=== PATIENT | male | born 1930 | race Caucasian/White ===

== ENCOUNTER 2020-03-10 11:08 | Emergency (ER) | payer OTHER ==
--- NOTE | 2020-03-10 12:09 | RAD REPORT ---
EXAM DESCRIPTION: CT - Thorax Wo Con CLINICAL HISTORY: Chest pain Pain;Smash injury COMPARISON: No comparisons FINDINGS: Emphysematous changes are present throughout the lungs with linear subsegmental atelectasi s both medial lung bases. Trace pleural fluid is present bilaterally. No pneumothorax. No axillary, mediastinal or hilar adenopathy. No displaced fractures are seen. There are several low-density lesions likely representing cysts. Rig ht renal cyst also present. All CT scans are performed using dose optimization technique as appropriate and may include automated exposure control or mA/KV adjustment according to patient size. IMPRESSION: No displaced rib fracture is seen. Atelectasis or mild infiltrate both lung bases with trace pleural effusions.
[2020-03-10] MEDS ORDERED: HYDROCODONE/APAP 5/325 MG TAB ONE (12:54)
--- NOTE | 2020-03-10 13:01 | ER ---
Nurse's Notes [facility] Name: Byron Snyder Age: 89 yrs Sex: Male : 1930 Arrival Date: 03/10/2020 Time: 11:10 Bed 24 Private MD: Tripp Hebert Diagnosis: Fall on same level, unspecified;Contusion to right lateral thorax Presentation: 03/10 11:20 Chief complaint: Patient states: Tripped Monday. Hit right lateral chest. States he has ll1 pain to a certain area with touch. No SOB or fever. Coronavirus screen: Client denies travel out of the [place] in the last 14 days. At this time, the client does not indicate any symptoms associated with coronavirus-19. Ebola Screen: Patient denies travel to an Ebola-affected area in the 21 days before illness onset. Initial Sepsis Screen: Does the patient meet any 2 criteria? No. Patient's initial sepsis screen is negative. Does the patient have a suspected source of infection? Yes: Bone or joint infection. Risk Assessment: Do you want to hurt yourself or someone else? Patient reports no desire to harm self or others. Onset of symptoms was March 08, 2020. 11:20 Method Of Arrival: Ambulatory ll1 11:20 Acuity: SULY 3 ll1 Historical: - Allergies: 11:23 Wasps; ll1 - PMHx: 11:23 Hyperlipidemia; ll1 - PSHx: 11:23 2 cardiac stents; Appendectomy; Tonsillectomy; ll1 - Immunization history:: Flu vaccine is up to date. - Social history:: Smoking status: Patient denies any tobacco usage or history of. Screenin:31 Abuse screen: Denies threats or abuse. Nutritional screening: No deficits noted. jd3 Tuberculosis screening: No symptoms or risk factors identified. Fall Risk Ambulatory Aid- Crutches/Cane/Walker (15 pts). Gait- Weak (10 pts.). Mental Status- Oriented to own ability (0 pts). Total Caal Fall Scale indicates Low Risk Score (25-44 pts). Fall prevention measures have been instituted. Side Rails Up X 2 Placed close to Nursing Station Frequent Obs/Assesments occuring Family Present and informed to notify staff if they need to leave bedside. Assessment: 12:30 General: Appears in no apparent distress. uncomfortable, Behavior is calm, cooperative, jd3 appropriate for age. Pain: Complains of pain in right lateral anterior chest Quality of pain is described as stabbing, tender. Neuro: Level of Consciousness is awake, alert, obeys commands, Oriented to person, place, time, situation. Cardiovascular: Heart tones present Capillary refill < 3 seconds Patient's skin is warm and dry. Respiratory: Airway is patent Respiratory effort is even, unlabored, Respiratory pattern is regular, symmetrical, Breath sounds are clear bilaterally. Denies cough, shortness of breath. GI: No signs and/or symptoms were reported involving the gastrointestinal system. : No signs and/or symptoms were reported regarding the genitourinary system. EENT: No signs and/or symptoms were reported regarding the EENT system. Derm: Skin is intact, Skin is dry, Skin is normal, Skin temperature is warm. Musculoskeletal: Circulation, motion, and sensation intact. Range of motion: intact in all extremities. 13:12 Reassessment: Patient appears in no apparent distress at this time. No changes from jd3 previously documented assessment. Patient and/or family updated on plan of care and expected duration. Pain level reassessed. Patient is alert, oriented x 3, equal unlabored respirations, skin warm/dry/pink. awaiting incitive spirometer teaching from respiratory therapy before discharge. 13:32 Reassessment: Patient appears in no apparent distress at this time. Patient and/or jd3 family updated on plan of care and expected duration. Pain level reassessed. Patient is alert, oriented x 3, equal unlabored respirations, skin warm/dry/pink. incitive spirometer taught by nurse and pt discharged. Vital Signs: 11:20 BP 125 / 58; Pulse 44; Resp 17; Temp 97.4; Pulse Ox 100% ; Weight 70.31 kg; Height 5 ll1 ft. 10 in. (177.80 cm); Pain 8/10; 13:33 BP 126 / 62; Pulse 50; Resp 16 S; Pulse Ox 100% on R/A; jd3 11:20 Body Mass Index 22.24 (70.31 kg, 177.80 cm) ll1 ED Course: 11:10 Patient arrived in ED. mr 11:10 Tripp Hebert MD is Private Physician. mr 11:22 Triage completed. ll1 11:29 Patient has correct armband on for positive identification. ll1 11:34 [facility] 12:00 CT Chest Wo Con In Process Unspecified. EDMS 12:11 Raghav Baez RN is Primary Nurse. jd3 12:31 Arm band placed on. jd3 13:00 Tripp Hebert MD is Referral Physician. snw 13:02 Bo Max MD is Attending Physician. snw 13:33 No provider procedures requiring assistance completed. Patient did not have IV access jd3 during this emergency room visit. Administered Medications: 12:43 Drug: [place] 5 mg-325 mg 1 tabs Route: PO; jd3 13:05 Follow up: Response: No adverse reaction; RASS: Alert and Calm (0) jd3 Outcome: 13:01 Discharge ordered by . snw 13:33 Discharged to home ambulatory, with family. jd3 13:33 Condition: stable 13:33 Discharge instructions given to patient, family, Instructed on discharge instructions, follow up and referral plans. medication usage, Demonstrated understanding of instructions, follow-up care, medications, Prescriptions given X 1. 13:34 Patient left the ED. jd3 Signatures: Dispatcher [employer] EDCT Amie Reese FNP-C DIGITAL ARCHIVIST-Csn Christi Lam mr Raghav Baez RN RN Contreras Alaniz RN RN ll1 Corrections: (The following items were deleted from the chart) 11:29 11:23 Arm band placed on Patient placed in an exam room, on a stretcher, ll1 ll1 13:14 13:12 Reassessment: Patient appears in no apparent distress at this time. No changes jd3 from previously documented assessment. Patient and/or family updated on plan of care and expected duration. Pain level reassessed. Patient is alert, oriented x 3, equal unlabored respirations, skin warm/dry/pink. awaiting incitive spirometer teaching from respiratory therapy before discharge jd3
--- NOTE | 2020-03-10 13:02 | EDPHYS ---
Physician Documentation [facility] Name: Byron Snyder Age: 89 yrs Sex: Male : 1930 Arrival Date: 03/10/2020 Time: 11:10 Bed 24 Private MD: Tripp Hebert ED Physician Bo Max HPI: 03/10 13:02 This 89 yrs old Male presents to ER via Ambulatory with complaints of Fall snw Injury, Rib pain. 13:02 Details of fall: The patient fell from an upright position, while walking. Onset: The snw symptoms/episode began/occurred suddenly, 2 day(s) ago, and became persistent. Associated injuries: The patient sustained lowest right lateral rib. Severity of symptoms: At their worst the symptoms were moderate. The patient has not experienced similar symptoms in the past. It is unknown whether or not the patient has recently seen a physician. no LOC, no head injury. Historical: - Allergies: 11:23 Wasps; ll1 - PMHx: 11:23 Hyperlipidemia; ll1 - PSHx: 11:23 2 cardiac stents; Appendectomy; Tonsillectomy; ll1 - Immunization history:: Flu vaccine is up to date. - Social history:: Smoking status: Patient denies any tobacco usage or history of. ROS: 14:22 Constitutional: Negative for fever, chills, and weight loss, Eyes: Negative for injury, snw pain, redness, and discharge, ENT: Negative for injury, pain, and discharge, Neck: Negative for injury, pain, and swelling, Cardiovascular: Negative for chest pain, palpitations, and edema, Respiratory: Negative for shortness of breath, cough, wheezing, and pleuritic chest pain, Abdomen/GI: Negative for abdominal pain, nausea, vomiting, diarrhea, and constipation, Back: Negative for injury and pain, : Negative for injury, bleeding, discharge, and swelling, Skin: Negative for injury, rash, and discoloration, Neuro: Negative for headache, weakness, numbness, tingling, and seizure, Psych: Negative for depression, anxiety, suicide ideation, homicidal ideation, and hallucinations. 14:22 MS/extremity: Positive for injury or acute deformity, pain, of the right lateral anterior chest. Exam: 14:22 Constitutional: This is a well developed, well nourished patient who is awake, alert, snw and in no acute distress. Head/Face: Normocephalic, atraumatic. Eyes: Pupils equal round and reactive to light, extra-ocular motions intact. Lids and lashes normal. Conjunctiva and sclera are non-icteric and not injected. Cornea within normal limits. Periorbital areas with no swelling, redness, or edema. ENT: Nares patent. No nasal discharge, no septal abnormalities noted. Tympanic membranes are normal and external auditory canals are clear. Oropharynx with no redness, swelling, or masses, exudates, or evidence of obstruction, uvula midline. Mucous membranes moist. Neck: Trachea midline, no thyromegaly or masses palpated, and no cervical lymphadenopathy. Supple, full range of motion without nuchal rigidity, or vertebral point tenderness. No Meningismus. Cardiovascular: Regular rate and rhythm with a normal S1 and S2. No gallops, murmurs, or rubs. Normal PMI, no JVD. No pulse deficits. Respiratory: Lungs have equal breath sounds bilaterally, clear to auscultation and percussion. No rales, rhonchi or wheezes noted. No increased work of breathing, no retractions or nasal flaring. Abdomen/GI: Soft, non-tender, with normal bowel sounds. No distension or tympany. No guarding or rebound. No evidence of tenderness throughout. Back: No spinal tenderness. No costovertebral tenderness. Full range of motion. Skin: Warm, dry with normal turgor. Normal color with no rashes, no lesions, and no evidence of cellulitis. MS/ Extremity: Pulses equal, no cyanosis. Neurovascular intact. Full, normal range of motion. Neuro: Awake and alert, GCS 15, oriented to person, place, time, and situation. Cranial nerves II-XII grossly intact. Motor strength 5/5 in all extremities. Sensory grossly intact. Cerebellar exam normal. Normal gait. Psych: Awake, alert, with orientation to person, place and time. Behavior, mood, and affect are within normal limits. 14:22 Chest/axilla: Inspection: normal, Palpation: crepitus, is not appreciated, tenderness, that is moderate, that is severe, of the right lateral anterior chest, that totally reproduces the patient's complaints, lowest rib with tenderness to palpation. Vital Signs: 11:20 BP 125 / 58; Pulse 44; Resp 17; Temp 97.4; Pulse Ox 100% ; Weight 70.31 kg; Height 5 ll1 ft. 10 in. (177.80 cm); Pain 8/10; 13:33 BP 126 / 62; Pulse 50; Resp 16 S; Pulse Ox 100% on R/A; jd3 11:20 Body Mass Index 22.24 (70.31 kg, 177.80 cm) ll1 MDM: 12:22 Patient medically screened. snw 13:03 Data reviewed: vital signs, nurses notes. Data interpreted: Pulse oximetry: on room air snw is 100 %. Interpretation: normal. Counseling: I had a detailed discussion with the patient and/or guardian regarding: the historical points, exam findings, and any diagnostic results supporting the discharge/admit diagnosis, radiology results, the need for outpatient follow up, to return to the emergency department if symptoms worsen or persist or if there are any questions or concerns that arise at home. Special discussion: Based on the history and exam findings, there is no indication for further emergent testing or inpatient evaluation. I discussed with the patient/guardian the need to see the primary care provider for further evaluation of the symptoms. 03/10 11:35 Order name: CT Chest Wo Con; Complete Time: 12:11 snw 03/10 13:00 Order name: INCENTIVE SPIROMETRY snw Administered Medications: 12:43 Drug: [place] 5 mg-325 mg 1 tabs Route: PO; jd3 13:05 Follow up: Response: No adverse reaction; RASS: Alert and Calm (0) jd3 Disposition: 03/11 06:35 Co-signature as Attending Physician, Bo Max MD I agree with the assessment and kdr plan of care. Disposition: 03/10/20 13:01 Discharged to Home. Impression: Fall on same level, unspecified, Contusion to right lateral thorax. - Condition is Stable. - Discharge Instructions: Contusion, Costochondritis, Fall Prevention in the Home, Incentive Spirometer, Rehydration, Elderly. - Prescriptions for Ultram 50 mg Oral Tablet - take 1 tablet by ORAL route every 6 hours As needed; 12 tablet. - Medication Reconciliation Form, Thank You Letter, Antibiotic Education, Prescription Opioid Use form. - Follow up: Emergency Department; When: As needed; Reason: Worsening of condition. Follow up: Tripp Hebert MD; When: 2 - 3 days; Reason: Recheck today's complaints, Continuance of care, Re-evaluation by your physician. Signatures: Dispatcher [employer] EDMS Bo Max MD MD kdr Waters, Shelly, OVERLAY PLASTICIAN-C OVERLAY PLASTICIAN-Csnw Raghav Baez, RN RN jd3 Contreras Polanco RN RN ll1 Corrections: (The following items were deleted from the chart) 03/10 13:34 13:01 03/10/2020 13:01 Discharged to Home. Impression: Fall on same level, unspecified; jd3 Contusion to right lateral thorax. Condition is Stable. Forms are Medication Reconciliation Form, Thank You Letter, Antibiotic Education, Prescription Opioid Use. Follow up: Emergency Department; When: As needed; Reason: Worsening of condition. Follow up: Tripp Hebert; When: 2 - 3 days; Reason: Recheck today's complaints, Continuance of care, Re-evaluation by your physician. snw
[2020-03-10 14:58] VITALS: TEMP 97.4; O2SAT 100
[2020-03-10 14:59] VITALS: BP 126/62
== END 2020-03-10 13:34 | disposition home or self-care (01) ==
LOC: ER 11:08
DX: S20.20XA Contusion of thorax, unspecified, initial encounter (principal); W18.30XA Fall on same level, unspecified, initial encounter; Y93.01 Activity, walking, marching and hiking; Y92.9 Unspecified place or not applicable; Z91.038 Other insect allergy status; Z95.818 Presence of other cardiac implants and grafts
CPT/HCPCS: 71250; 99283

== ENCOUNTER 2021-05-11 13:05 | Inpatient (IN) | payer OTHER ==
--- OUTSIDE RECORDS SUMMARY | 2021-05-11 15:10 | XMS REPORT | Continuity of Care Document ---
:1930 Author Organization [facility] t Address [address] [place] [address] Care Team Providers Name Role Phone Only, Test Attending Clinician Unavailable Salty SHIPLEY Attending Clinician SALTY Attending Clinician Unavailable Raju_P Attending Clinician Unavailable Raju_P Admitting Clinician Unavailable Payers Payer Name Policy Type Policy Number Effective Date Expiration Date S ource Problems This patient has no known problems. Allergies, Adverse Reactions, Alerts Allergy Allergy Status Severity Reaction(s) Onset Inactive Treating Comm ents Source Name Type Date Date Clinician NO KNOWN [facility] Start Date Stop Date Quantity Comments [facility] Sm[facility] Status Start Date Stop Date Source Unknown if ever smoked [facility] Medications This patient has no known medications. Procedures This patient has no known procedures. Encounters Start End Encounter Admission Attending Care Care Encounter Source Date/Time Date/Time Type Type Clinicians Facility Department ID 2020-04-13 2020-04-13 Laboratory Only, Adc Test [facility] [id number] Univers 11:59:24 12:14:24 Only Robert Cox [id number] diaz [facility] [id number] [facility] [id number] [address] 2020-04-13 2020-04-13 Outpatient R SALTY [facility] [id number] Univers 11:45:00 11:45:00 ROBERT diaz [facility] 2019-08-14 2019-08-14 Outpatient Raju_P [facility] [id number] [place] 11:18:00 11:18:00 [facility]25 [facility] Results This patient has no known results.
[2021-05-11] MEDS ORDERED: ALPRAZOLAM 0.25 MG TABLET PO PRN (16:42)
[2021-05-11] MEDS: D5 0.9 NS 1,000 ML IV SCH (17:00)
[2021-05-11 17:29] LABS: Absolute Lymphocytes (CBC) 1.1 K/uL (0.7-4.9); Basophils % 0.5 % (0-1.3); Hematocrit 39.4 % (39.6-49.0); Lymphocytes % 14.7 % (15.3-44.8); RBC Red Blood Cell Count 4.39 M/uL (4.33-5.43)
[2021-05-11 17:40] LABS: Potassium 3.2 mmol/L (3.5-5.1)
--- NOTE | 2021-05-11 18:08 | RAD REPORT ---
EXAM DESCRIPTION: RAD - Chest Pa And Lat (2 Views) - 05/11/2021 6:00 pm CLINICAL HISTORY: r/o pneumonia COMPARISON: CHEST SINGLE VIEW dated 12/24/2010; CHEST PA AND LAT 2 VIEW dated 04/05/2006 FINDINGS: Lines: None. Lungs: No evidence of edema or pneumonia. Hyperinflated lungs. Pleural: No significant pleural effusions or pneumothorax. Cardiac: The heart size is within normal limits. Bones: No acute fractures. Other: IMPRESSION: No acute cardiopulmonary disease. Hyperinflated lungs.
[2021-05-11 18:28] VITALS: BMI 18.0
[2021-05-12] MEDS: D5 0.9 NS 1,000 ML IV SCH ×4 (01:00→14:27)
--- NOTE | 2021-05-12 09:39 | PN ---
Date of Progress Note: 05/11/2021 Tonight, the patient seems more alert since he got the IV fluids started. The patient has much diffi culty with swallowing, has been seen by GI and had a workup which revealed some esophageal dysmotilit y. He, according to his , has progressed significantly. Discussion was had with her as far as d isposition is concerned including hospice depending on his family's wishes and his responsiveness to the IV. We will discuss further during this hospitalization. HR/MODL Voice ID: [id number] Report ID: [id number]
--- NOTE | 2021-05-12 10:00 | HP ---
Date of Admission: 05/11/2021 Entrance Complaint: Dysphagia, anorexia, weight loss. History Of Present Illness: The patient presented to the office with the above-outlined symptoms. Laura mejia general condition has been deteriorating somewhat over the past few months. He has had difficulty swallowing. The barium swallow showed some dysmotility and he underwent an EGD, which we do not hav e the final report of but slasher runner, who made a referral to [facility], however, they have not been able to obtain an appointment. Medication was also utilized. However, according to the , laura robledo has continued to have decreasing amount of intake with some vomiting as well. He has been very let hargic and sleeping most of the day. 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 The patient has been on Xanax on a p.r.n. basis and claims that he has been taking it once a day as o f late for generalized anxiety. Social History: Nonsmoker, nondrinker. Family History: Noncontributory. Physical Examination: General: The patient is a thin elderly male, orientated, but slightly confused. Head and Neck: Normocephalic. Pupils are equal, reactive to accommodation. Fundi negative. Trache a midline. Thyroid not palpable. ENT: Negative. Chest: Clear to P and A. Cardiovascular: PMI midclavicular line. Heart sounds normal. Peripheral pulses present and equal b ilaterally. Abdomen: No organomegaly. Bowel sounds present and hyperactive. Extremities: Moderately dehydrated. Good tone and movement bilaterally. Reflexes physiologic. Rectal: Deferred. Impression: Esophageal dysmotility, weight loss secondary to decreased caloric intake, altered menta l status secondary to a combination of nutritional defect and probable aging process. Plan: The patient will be admitted, placed on IV fluids. Depending on his response and the family's wishes for disposition including the possibility of hospice. We will monitor him for the next few d ays. HR/MODL Voice ID: [id number]
--- NOTE | 2021-05-12 13:41 | PN ---
Reviewing his status, I feel it is medically necessary for him to stay 2 midnights. He is now starte d on fluids. He has been n.p.o. with IV, which he has done since admission and has resulted in much more alert and functional state. We will therefore introduce some liquids to see if he can tolerate it. Plan to be discharged in the a.m. depending on the family's wishes and the possibility of a hosp ice admission. The family will be working with Digital Community Manager to facilitate the disposition status and obviously somewhat dependent on his ability to swallow, we should be able to ascertain this by nicola yan. Prior to his hospitalization, he could not tolerate any solids or liquids; however, he is wi lling to try again. Possibility of aspiration is also under consideration. The patient did have jamarcus e episodes of wheezing. His x-ray and his chest are clear today. HR/MODL Voice ID: [id number] Report ID: [id number]
[2021-05-12 15:16] LABS: Urine Appearance CLOUDY (Clear); Urine Blood 3+ (Negative); Urine Color DK YELLOW (Yellow); Urine Glucose NEGATIVE (Negative); Urine Protein 1+ (Negative); Urine Specific Gravity 1.025 (1.005-1.030); Urine pH 5.5 (5.0-7.0)
[2021-05-12 15:24] LABS: Urine Microscopic Reflex ORDER UMIC
[2021-05-12 15:37] LABS: Urine Bacteria 20-50 /HPF (NONE SEEN); Urine Bilirubin 1+ (Negative)
[2021-05-12 16:10] LABS: Urine Mucus 3+ /HPF (NONE SEEN)
[2021-05-12] MEDS: ALPRAZOLAM 0.25 MG TABLET PO PRN (23:17)
[2021-05-12 23:52] VITALS: O2SAT 91
[2021-05-13] MEDS: D5 0.9 NS 1,000 ML IV SCH (03:10)
[2021-05-13] MEDS: ALPRAZOLAM 0.25 MG TABLET PO PRN (08:17)
--- NOTE | 2021-05-13 11:16 | PN ---
Date of Progress Note: 05/13/2021 The patient has had some restlessness, calms considerably with Xanax at a 0.5 dose. He had been on a 0.25 at home. He has intermittent ability to swallow according to the family and the nursing staff. Family has decided on hospice. He will be discharged today in a hospice program. HR/MODL Voice ID: [id number] Report ID: [id number]
[2021-05-13 16:28] VITALS: BP 148/63; TEMP 97.2
== END 2021-05-13 16:03 | disposition home health service (06) | DRG 392 ==
LOC: 2ND 15:07 → OBSVTOIN 05-12 13:08
PROVIDERS: ADMIT Family Medicine; ATTEND Family Medicine
DX: K22.89 Other specified disease of esophagus (principal); Z68.1 Body mass index [BMI] 19.9 or less, adult; Z20.822 Contact with and (suspected) exposure to COVID-19; R63.4 Abnormal weight loss
CPT/HCPCS: 36415; 71046; 80048; 81003; 81015; 85025; 87086; 87088; 97161; G0378; G0379; J7042; U0003